=== PATIENT | female | born 1975 | race Caucasian/White ===

== ENCOUNTER 2017-03-20 02:42 | Observation (INO) | payer OTHER ==
[2017-03-20] MEDS ORDERED: ONDANSETRON 4 MG/2 ML VIAL IVP ONE (03:00)
[2017-03-20] MEDS ORDERED: NS 1,000 ML IV ONE ×3 (03:00→05:12)
--- NOTE | 2017-03-20 03:01 | EDPHY ---
H & P Stated Complaint: n/v/d HPI/ROS: Chief Complaint: Nausea, vomiting, diarrhea HPI: 41-year-old woman past medical history asthma went to bed feeling normal woke up this morning with nausea vomiting and diarrhea. She has had multiple episodes of vomiting and several episodes of diarrhea. She has had 2 syncopal episodes this morning while leaning forward trying to grab an emesis basin. She is complaining some mild pain in her right hand. No chest pain shortness of breath. Some mild crampy abdominal pain. Some mild low back pain. Does not have a history of syncope in the past. No chest pain or palpitations. No other ill family members at this time. ROS: 10 point Review of Systems is negative except as noted in the HPI. PMH: Asthma Medications: Singular, albuterol, Flovent Allergies: Erythromycin latex Social History: No smoking, occasional alcohol, no recreational drug use Family History: non-contributory Physical Exam: Gen: Awake, Alert, No Distress HEENT: Nose: no rhinorrhea Eyes: PERRLA, EOMI Mouth: Dry mucosa Neck: Supple, no JVD Chest: nontender, lungs clear to auscultation Heart: S1, S2 normal, no murmur Abd: Soft, non-tender, no guarding Back: no CVA tenderness, no midline tenderness Ext: no edema, non-tender Skin: no rash Neuro: CN II-XII intact, Sensation grossly intact, Strength 5/5 in bilateral upper and lower extremities - Personal History LMP (Females 10-55): 15-21 Days Ago Current Tetanus/Diphtheria Vaccine: Yes Current Tetanus Diphtheria and Acellular Pertussis (TDAP): Yes - Medical/Surgical History Hx Asthma: Yes Hx Chronic Respiratory Disease: No Hx Diabetes: No Hx Cardiac Disease: No Hx Renal Disease: No Hx Cirrhosis: No Hx Alcoholism: No Hx HIV/AIDS: No Hx Splenectomy or Spleen Trauma: No Other PMH: asthma, - Social History Smoking Status: Never smoked Constitutional: Initial Vital Signs Temperature (C) 36.5 C 03/20/17 02:48 Heart Rate 69 03/20/17 02:48 Respiratory Rate 24 H 03/20/17 02:48 Blood Pressure 122/73 H 03/20/17 02:48 O2 Sat (%) 98 03/20/17 02:48 O2 Delivery Mode Room Air Allergies/Adverse Reactions: erythromycin base Allergy (Verified 03/20/17 02:47) latex Allergy (Verified 03/20/17 02:47) Home Medications: Medication Instructions Recorded Albuterol 03/20/17 Flovent Hfa 03/20/17 Singulair 03/20/17 Medical Decision Making ED Course/Re-evaluation: 41-year-old woman coming in with nausea vomiting diarrhea with leukocytosis of 24,000. Abdomen is soft and benign. She has been given 2 L normal saline. She has no ketones in her urinary and her urinalysis is negative. She is feeling somewhat improved after 2 L of IV hydration however repeat CBC shows a persistent leukocytosis of 24,000. I have discussed with Dr. Vivek Campos, hospitalist. He will admit to observation for further evaluation. - Data Points Laboratory Results: Laboratory Results 03/20/17 04:39 03/20/17 03:00 03/20/17 03/20/17 03/20/17 04:39 04:39 03:00 WBC 23.99 10^3/uL H 10^3/uL (3.80-9.50) RBC 4.41 10^6/uL 10^6/uL (4.18-5.33) Hgb 13.6 g/dL g/dL (12.6-16.3) Hct 41.0 % % (38.0-47.0) MCV 93.0 fL fL (81.5-99.8) MCH 30.8 pg pg (27.9-34.1) MCHC 33.2 g/dL g/dL (32.4-36.7) RDW 13.3 % % (11.5-15.2) Plt Count 237 10^3/uL 10^3/uL (150-400) MPV 11.3 fL fL (8.7-11.7) Neut % (Auto) 93.1 % H % (39.3-74.2) Lymph % (Auto) 3.0 % L % (15.0-45.0) [place] % (Auto) 3.0 % L % (4.5-13.0) Eos % (Auto) 0.1 % L % (0.6-7.6) Baso % (Auto) 0.3 % % (0.3-1.7) Nucleat RBC Rel Count 0.0 % % (0.0-0.2) Absolute Neuts (auto) 22.34 10^3/uL H 10^3/uL (1.70-6.50) Absolute Lymphs (auto) 0.72 10^3/uL L 10^3/uL (1.00-3.00) Absolute Monos (auto) 0.72 10^3/uL 10^3/uL (0.30-0.80) Absolute Eos (auto) 0.03 10^3/uL 10^3/uL (0.03-0.40) Absolute Basos (auto) 0.07 10^3/uL 10^3/uL (0.02-0.10) Absolute Nucleated RBC 0.00 10^3/uL 10^3/uL (0-0.01) Immature Gran % 0.5 % % (0.0-1.1) Immature Gran # 0.11 10^3/uL H 10^3/uL (0.00-0.10) Sodium Potassium Chloride Carbon Dioxide Anion Gap BUN Creatinine Estimated GFR Glucose Calcium Beta HCG, Qual NEGATIVE Urine Color YELLOW Urine Appearance CLEAR Urine pH 6.0 (5.0-7.5) Ur Specific [place] 1.009 (1.002-1.030) Urine Protein NEGATIVE (NEGATIVE) Urine Ketones NEGATIVE (NEGATIVE) Urine Blood 1+ H (NEGATIVE) Urine Nitrate NEGATIVE (NEGATIVE) Urine Bilirubin NEGATIVE (NEGATIVE) Urine Urobilinogen NEGATIVE EU EU (0.2-1.0) Ur Leukocyte Esterase NEGATIVE (NEGATIVE) Urine RBC 1-3 /hpf /hpf (0-3) Urine WBC 1-3 /hpf /hpf (0-3) Ur Epithelial Cells TRACE /lpf /lpf (NONE-1+) Urine Bacteria TRACE /hpf H /hpf (NONE SEEN) Hyaline Casts 1-5 /lpf /lpf (0-1) Urine Mucus TRACE /lpf /lpf (NONE-1+) Urine Glucose NEGATIVE (NEGATIVE) 03/20/17 03/20/17 03:00 03:00 WBC 24.42 10^3/uL H 10^3/uL (3.80-9.50) RBC 4.78 10^6/uL 10^6/uL (4.18-5.33) Hgb 14.7 g/dL g/dL (12.6-16.3) Hct 43.6 % % (38.0-47.0) MCV 91.2 fL fL (81.5-99.8) MCH 30.8 pg pg (27.9-34.1) MCHC 33.7 g/dL g/dL (32.4-36.7) RDW 13.2 % % (11.5-15.2) Plt Count 286 10^3/uL 10^3/uL (150-400) MPV 11.0 fL fL (8.7-11.7) Neut % (Auto) 90.4 % H % (39.3-74.2) Lymph % (Auto) 3.6 % L % (15.0-45.0) [place] % (Auto) 4.8 % % (4.5-13.0) Eos % (Auto) 0.2 % L % (0.6-7.6) Baso % (Auto) 0.4 % % (0.3-1.7) Nucleat RBC Rel Count 0.0 % % (0.0-0.2) Absolute Neuts (auto) 22.08 10^3/uL H 10^3/uL (1.70-6.50) Absolute Lymphs (auto) 0.87 10^3/uL L 10^3/uL (1.00-3.00) Absolute Monos (auto) 1.18 10^3/uL H 10^3/uL (0.30-0.80) Absolute Eos (auto) 0.06 10^3/uL 10^3/uL (0.03-0.40) Absolute Basos (auto) 0.09 10^3/uL 10^3/uL (0.02-0.10) Absolute Nucleated RBC 0.00 10^3/uL 10^3/uL (0-0.01) Immature Gran % 0.6 % % (0.0-1.1) Immature Gran # 0.14 10^3/uL H 10^3/uL (0.00-0.10) Sodium 141 mEq/L mEq/L (134-144) Potassium 3.9 mEq/L mEq/L (3.5-5.2) Chloride 110 mEq/L mEq/L (97-110) Carbon Dioxide 17 mEq/l L mEq/l (22-31) Anion Gap 14 mEq/L mEq/L (8-16) BUN 16 mg/dL mg/dL (7-23) Creatinine 0.8 mg/dL mg/dL (0.6-1.0) Estimated GFR > 60 Glucose 117 mg/dL H mg/dL (70-100) Calcium 9.9 mg/dL mg/dL (8.5-10.4) Beta HCG, Qual Urine Color Urine Appearance Urine pH Ur Specific [place] Urine Protein Urine Ketones Urine Blood Urine Nitrate Urine Bilirubin Urine Urobilinogen Ur Leukocyte Esterase Urine RBC Urine WBC Ur Epithelial Cells Urine Bacteria Hyaline Casts Urine Mucus Urine Glucose Medications Given: Discontinued Medications Sodium Chloride (Ns) 1,000 mls @ 0 mls/hr IV ONCE ONE PRN Reason: Wide Open Stop: 03/20/17 03:01 Last Admin: 03/20/17 03:04 Dose: 1,000 mls Sodium Chloride (Ns) 1,000 mls @ 0 mls/hr IV ONCE ONE PRN Reason: Wide Open Stop: 03/20/17 03:27 Last Admin: 03/20/17 03:32 Dose: 1,000 mls Ondansetron HCl (Zofran) 4 mg IVP EDNOW ONE Stop: 03/20/17 03:01 Last Admin: 03/20/17 03:04 Dose: 4 mg Departure - Departure Disposition: [facility] Inpatient Acute Clinical Impression: Vomiting, Dehydration, Gastroenteritis, Leukocytosis Condition: Fair Referrals: Ciera Tenorio MD [Primary Care Provider] - As per Instructions
[2017-03-20 03:13] LABS: % IMMATURE GRANULYOCYTES 0.6 % (0.0-1.1); ABSOLUTE IMMATURE GRANULOCYTES 0.14 10^3/uL (0.00-0.10); ADD DIFF? NO; ADD MORPH? NO; ADD SCAN? NO; ATYPICAL LYMPHOCYTE FLAG 0 (0-99); FRAGMENT RBC FLAG 0 (0-99); HEMATOCRIT 43.6 % (38.0-47.0); HEMOGLOBIN 14.7 g/dL (12.6-16.3); LEFT SHIFT FLG 10 (0-99); LIPEMIA HEMOLYSIS FLAG 80 (0-99); MEAN CELL HEMOGLOBIN 30.8 pg (27.9-34.1); MEAN CELL HEMOGLOBIN CONCENTR. 33.7 g/dL (32.4-36.7); MEAN CELL VOLUME 91.2 fL (81.5-99.8); PLATELET CLUMPS FLAG 20 (0-99); PLATELET COUNT 286 10^3/uL (150-400); RED BLOOD CELL COUNT 4.78 10^6/uL (4.18-5.33); RED CELL DISTRIBUTION WIDTH 13.2 % (11.5-15.2)
[2017-03-20 03:22] LABS: ANION GAP 14 mEq/L (8-16); CALCIUM 9.9 mg/dL (8.5-10.4); CARBON DIOXIDE 17 mEq/l (22-31); CHLORIDE 110 mEq/L (97-110); CREATININE 0.8 mg/dL (0.6-1.0); GLOMERULAR FILTRATION RATE > 60; GLUCOSE 117 mg/dL (70-100); POTASSIUM 3.9 mEq/L (3.5-5.2); SODIUM 141 mEq/L (134-144)
[2017-03-20 04:50] LABS: % IMMATURE GRANULYOCYTES 0.5 % (0.0-1.1); ABSOLUTE IMMATURE GRANULOCYTES 0.11 10^3/uL (0.00-0.10); ADD DIFF? NO; ADD MORPH? NO; ADD SCAN? NO; ATYPICAL LYMPHOCYTE FLAG 0 (0-99); FRAGMENT RBC FLAG 0 (0-99); HEMOGLOBIN 13.6 g/dL (12.6-16.3); LEFT SHIFT FLG 60 (0-99); LIPEMIA HEMOLYSIS FLAG 80 (0-99); MEAN CELL HEMOGLOBIN 30.8 pg (27.9-34.1); MEAN CELL HEMOGLOBIN CONCENTR. 33.2 g/dL (32.4-36.7); MEAN PLATELET VOLUME 11.3 fL (8.7-11.7); PLATELET CLUMPS FLAG 10 (0-99); PLATELET COUNT 237 10^3/uL (150-400); RED BLOOD CELL COUNT 4.41 10^6/uL (4.18-5.33); RED CELL DISTRIBUTION WIDTH 13.3 % (11.5-15.2)
[2017-03-20 04:52] LABS: COLOR YELLOW; LEUKOCYTE ESTERASE,URINE NEGATIVE (NEGATIVE); NITRITE,URINE NEGATIVE (NEGATIVE)
[2017-03-20 04:55] LABS: BACTERIA TRACE /hpf (NONE SEEN); MUCUS TRACE /lpf (NONE-1+)
[2017-03-20] MEDS ORDERED: PROMETHAZINE HCL 25 MG/ML INJ IVP PRN (05:27)
[2017-03-20] MEDS ORDERED: ONDANSETRON 4 MG/2 ML VIAL IVP PRN (05:27)
[2017-03-20] MEDS ORDERED: ONDANSETRON DISINTEGRATING 4 MG TAB PO PRN (05:27)
[2017-03-20] MEDS ORDERED: ACETAMINOPHEN 325 MG TAB PO PRN (05:27)
--- NOTE | 2017-03-20 05:58 | GHP ---
[f rep st] HISTORY AND PHYSICAL DATE OF ADMISSION: 03/20/2017 CHIEF COMPLAINT: Nausea, vomiting. HISTORY OF PRESENT ILLNESS: 41-year-old healthy female presents with a few hours of nausea, vomiting. She went to sleep at 9:30, woke up at 10 and immediately began vomiting. She has had 2-3 episodes of vomiting. She has had profuse diarrhea that is nonbloody. Her vomiting has also been nonbloody. During 2 episodes of vomiting, she had syncope where she felt warm and flushed with no palpitations nor chest pain preceding this. She has never had an episode of syncope before. She had a chicken salad that her also ate who is not sick. For lunch, she had [employer]. They went camping recently but drank only prepared water that they had brought with them. She has never had any abdominal surgeries. PAST MEDICAL/SURGICAL HISTORY: Seasonal allergies. MEDICATIONS: Please see medication reconciliation. ALLERGIES: Erythromycin and latex. FAMILY HISTORY: Her mother had brain cancer and Marely's. SOCIAL HISTORY: She occasionally drinks alcohol. She does not smoke. She is accompanied by her . REVIEW OF SYSTEMS: A 10-point review of systems is conducted and is negative except per HPI. PHYSICAL EXAM: VITAL SIGNS: Blood pressure 118/67, heart rate 78, respiration rate 16, saturating 96% on room air, temperature is 37.2. GENERAL: The patient is a very pleasant female who is resting comfortably, in no acute distress. HEENT: Normocephalic, atraumatic. CARDIOVASCULAR: She has a regular rate and rhythm. No murmurs, rubs, or gallops. PULMONARY: Lungs clear to auscultation bilaterally. ABDOMEN: Soft, nontender, nondistended in all 4 quadrants. She has normal bowel sounds. SKIN: No rash. : No Stewart. NEUROLOGIC: Alert and oriented x3. She is moving all extremities. PSYCHIATRIC: Normal mood and affect. LABS: Most notable for a white count of 24,000. Bicarb is 17. Urinalysis shows 1+ blood and trace bacteria. DATA: 1. I discussed this with Dr. Guzman. Will admit to med/surg. 2. I reviewed an old abdomen and pelvis ultrasound that showed no evidence for hematuria with a normal renal ultrasound. IMPRESSION AND PLAN: A 41-year-old female with gastroenteritis. 1. Gastroenteritis: Suspect that this is most likely viral. Could also be food poisoning. Regardless, will provide her symptomatic control, IV hydration and antiemetics as needed. 2. Leukocytosis: This is quite marked. This is really the reason she was admitted. Will recheck again at noon. If this is decreasing and she is tolerating p.o., I think she can be safely discharged. I do not think she needs any abdominal imaging given the benign nature of her exam. If this continues or her exam becomes more concerning, would proceed with a CT of her abdomen. 3. Mild acidosis: Will recheck this at noon as well. I suspect that this will correct with IV fluids. /[id number]/MODL MTDD
[2017-03-20] MEDS ORDERED: ALBUTEROL 60 PUFFS/8 GM MDI IH PRN (08:59)
[2017-03-20 09:09] VITALS: RESP 20
[2017-03-20] MEDS ORDERED: ALBUTEROL 200 PUFFS/18 GM MDI IH PRN (09:10)
[2017-03-20 11:35] VITALS: BP 113/71; PULSE 63; TEMP 98.3; O2SAT 95
[2017-03-20 12:11] LABS: % IMMATURE GRANULYOCYTES 0.4 % (0.0-1.1); ABSOLUTE IMMATURE GRANULOCYTES 0.05 10^3/uL (0.00-0.10); ADD DIFF? NO; ADD MORPH? NO; ADD SCAN? NO; ATYPICAL LYMPHOCYTE FLAG 0 (0-99); FRAGMENT RBC FLAG 0 (0-99); HEMATOCRIT 38.2 % (38.0-47.0); HEMOGLOBIN 12.5 g/dL (12.6-16.3); LEFT SHIFT FLG 10 (0-99); LIPEMIA HEMOLYSIS FLAG 80 (0-99); MEAN CELL HEMOGLOBIN 30.9 pg (27.9-34.1); MEAN CELL HEMOGLOBIN CONCENTR. 32.7 g/dL (32.4-36.7); MEAN CELL VOLUME 94.3 fL (81.5-99.8); MEAN PLATELET VOLUME 11.1 fL (8.7-11.7); PLATELET CLUMPS FLAG 0 (0-99); PLATELET COUNT 242 10^3/uL (150-400); RED BLOOD CELL COUNT 4.05 10^6/uL (4.18-5.33); RED CELL DISTRIBUTION WIDTH 13.6 % (11.5-15.2)
[2017-03-20 12:31] LABS: ALANINE AMINOTRANSFERASE 27 IU/L (9-52); ALBUMIN 3.1 g/dL (3.5-5.0); ALKALINE PHOSPHATASE 46 IU/L (38-126); ANION GAP 10 mEq/L (8-16); ASPARTATE AMINOTRANSFERASE 17 IU/L (14-46); BILIRUBIN,TOTAL 0.7 mg/dL (0.1-1.4); CALCIUM 8.2 mg/dL (8.5-10.4); CARBON DIOXIDE 18 mEq/l (22-31); CHLORIDE 115 mEq/L (97-110); CREATININE 0.6 mg/dL (0.6-1.0); GLOMERULAR FILTRATION RATE > 60; GLUCOSE 87 mg/dL (70-100); SODIUM 143 mEq/L (134-144); TOTAL PROTEIN 5.5 g/dL (6.3-8.2)
[2017-03-20 12:52] LABS: PROCALCITONIN 0.06 ng/mL (0.02-0.10)
--- NOTE | 2017-03-20 18:31 | PDDCSUM ---
Discharge Summary Discharge Summary: DISCHARGE SUMMARY FOLLOW-UP ITEMS: Follow up with primary care provider next week DATE OF ADMISSION: 03/20/2017 DATE OF DISCHARGE: 03/20/2017 DISCHARGE DIAGNOSES: 1. Suspected acute viral gastroenteritis 2. Acute metabolic acidosis CONSULTATIONS: None PROCEDURES / IMAGING: None CHIEF COMPLAINT: Acute vomiting, nausea, abdominal pain, diarrhea SUBJECTIVE: Patient is feeling well at time of discharge, she is tolerating oral diet, she is not experiencing any subsequent abdominal symptoms PHYSICAL EXAM ON DISCHARGE: Systolic blood pressure 120, afebrile overnight, satting well on room air, awake oriented x3, abdomen is soft, nontender, hyperactive bowel sounds, no guarding, heart rhythm is regular with regular rate LABS ON DISCHARGE: Serum bicarbonate 18, creatinine 0.6, liver panel unremarkable, procalcitonin 0.06, lipase 138, test negative, white blood cell count [id number] HOSPITAL COURSE BY PROBLEM: 1. Suspected acute viral gastroenteritis. Evidenced by sudden onset of GI symptoms which responded to supportive care including IV fluids, antiemetics, bowel rest. Her diet was advanced to clears and when she became hungry was advanced to regular. Advised the patient to follow a bland diet for the next 24 hours and then advance as tolerates at home. She did not appear to have a bacterial process as her procalcitonin level was within the normal range. She did have significant leukocytosis on presentation which was most likely a stress response in the setting of her above symptoms. White blood cell count was down trending at time of discharge. She did not require stool PCR to evaluate for C diff, as her diarrhea had resolved at time of discharge. 2. Acute metabolic acidosis. Secondary to GI losses, resolved with IV fluids. DISCHARGE MEDICATIONS: Please see official discharge medication reconciliation sheet in chart , no additional medications. DISCHARGE INSTRUCTIONS: Follow up with primary care provider next week. This discharge summary is in addition to the initial history and physical exam Dr. Vievk Campos on the same day.
[2017-03-20] MEDS ORDERED: MONTELUKAST SODIUM 10 MG TAB PO SCH (21:00)
[2017-03-20] MEDS ORDERED: NON-FORMULARY NEW DRUG (Loratadine [Claritin 10 Mg] 10 MG) PO SCH (21:00)
[2017-03-20] MEDS ORDERED: CETIRIZINE 10 MG TAB PO SCH (21:00)
== END 2017-03-20 14:15 | disposition home or self-care (01) ==
LOC: F3E 08:27
PROVIDERS: ADMIT Student in an Organized Health Care Education/Training Program; ATTEND Student in an Organized Health Care Education/Training Program
DX: E87.2 Acidosis (principal); D72.829 Elevated white blood cell count, unspecified; R11.2 Nausea with vomiting, unspecified; R10.9 Unspecified abdominal pain; R19.7 Diarrhea, unspecified; Z91.040 Latex allergy status
CPT/HCPCS: G0378 ×2; J2405

== ENCOUNTER → 2017-04-21 | Outpatient (CLI) | payer OTHER ==
[~2017-04-21] MED LIST: IOPAMIDOL (ISOVUE-300) 100 ML BTL ONE
== END ==
LOC: FIMAGING 07:37
PROVIDERS: ATTEND Family Medicine
DX: N20.0 Calculus of kidney (principal); N85.9 Noninflammatory disorder of uterus, unspecified
CPT/HCPCS: Q9967

== ENCOUNTER → 2017-12-03 | Outpatient (CLI) | payer OTHER | LOC: FIMAGING 09:02 | PROVIDERS: ATTEND Family Medicine | DX: D25.9 Leiomyoma of uterus, unspecified (principal); R91.1 Solitary pulmonary nodule; Z87.442 Personal history of urinary calculi | CPT/HCPCS: Q9967 ==